=== PATIENT | female | born 1940 | race Hispanic/Latino ===

== ENCOUNTER → 2017-11-30 | Outpatient (CLI) | payer MEDICARE ==
--- NOTE | 2017-11-30 11:45 | Diagnostic Imaging Report ---
PROCEDURE: Frontal and lateral views of the chest. COMPARISON: None. INDICATIONS: SHORTNESS OF BREATH WHEN WALKING FINDINGS: Lines/tubes: None. Lungs: Lungs are well-inflated. There is diffuse moderate coarsening of the pulmonary interstitium, worse in the lower lobes. Ill-defined 1.0 cm nodular density projecting in the left lower lung over the posterior aspect of the left eighth rib, only seen in the frontal view. No consolidation. Pleura: There is no pleural effusion or pneumothorax. Eventration of the right anterior hemidiaphragm. Heart and mediastinum: Cardiac silhouette is partly obscured and likely enlarged. Pulmonary vasculature is partially obscured. Bones: No acute bony abnormality. Degenerative changes in the thoracic spine. IMPRESSION: 1. Findings in both lungs suggestive of fibrosis. Given the likely enlargement of the cardiac silhouette, a component of interstitial edema superimposed on fibrotic changes could also be considered. Recommend noncontrast CT chest with high resolution protocol for further evaluation. Benedict Cameron M.D. Dictated by: Benedict Cameron M.D. on 11/30/2017 at 11:50 Electronically approved by: Benedict Cameron M.D. on 11/30/2017 at 11:50
== END ==
LOC: RAD 10:19
PROVIDERS: ATTEND Internal Medicine Interventional Cardiology
DX: R06.02 Shortness of breath (principal)
CPT/HCPCS: 71046

== ENCOUNTER 2021-01-24 17:31 | Inpatient (IN) | payer MEDICARE, OTHER ==
[~2021-01-24] VITALS: Ht 160 cm; Wt 67.7 kg
[2021-01-24 18:25] LABS: BASOPHILS # (AUTO) 0.1 (0.0-0.1); BASOPHILS % 0.5 % (0.0-1.0); EOSINOPHILS # (AUTO) 0.1 (0.0-0.4); EOSINOPHILS % 0.5 % (0.0-6.0); HEMATOCRIT 39.5 % (34.2-44.1); HEMOGLOBIN 12.3 g/dL (12.0-16.0); LYMPHOCYTES # (AUTO) 1.4 (1.0-3.2); LYMPHOCYTES % 8.3 % (18.0-39.1); MEAN CORPUSCULAR HEMOGLOBIN 29.3 pg (28-32); MEAN CORPUSCULAR HGB CONC 31.1 g/dL (31-35); MONOCYTES # (AUTO) 1.2 (0.2-0.8); MONOCYTES % 7.1 % (4.4-11.3); NEUTROPHILS # (AUTO) 13.5 (2.1-6.9); PLATELET COUNT 261 x10e3/uL (140-360); RED CELL DISTRIBUTION WIDTH 14.3 % (11.7-14.4)
[2021-01-24 18:38] LABS: CLARITY,URINE CLEAR (CLEAR); COLOR,URINE YELLOW (YELLOW)
[2021-01-24 18:39] LABS: LEUKOCYTE ESTERASE ,URINE NEGATIVE (NEGATIVE); NITRITE,URINE NEGATIVE (NEGATIVE); PROTEIN,URINE DIPSTICK 2+ (NEGATIVE)
[2021-01-24 18:40] LABS: KETONES,URINE TRACE (NEGATIVE); URINE UROBILINOGEN 1 mg/dL (0.2 - 1)
[2021-01-24] MEDS ORDERED: CEFEPIME 1 GM in SODIUM CHLORIDE 0.9% 50ML 50 ML IV ONE (18:45)
[2021-01-24] MEDS ORDERED: SODIUM CHLORIDE 0.9% 1000ML 1,000 ML IV ONE ×2 (18:45)
[2021-01-24 18:46] LABS: AMORPHOUS SEDIMENT,URINE MODERATE (FEW); BACTERIA,URINE FEW /HPF; EPITHELIAL CELLS,URINE FEW /LPF; HYALINE CASTS 0-1 (0-1)
[2021-01-24 18:47] LABS: AMYLASE 63 U/L (25-125); LIPASE 29 U/L (8-78)
[2021-01-24 18:50] LABS: ALBUMIN 3.4 g/dL (3.5-5.0); ALBUMIN/GLOBULIN RATIO 0.8 (0.8-2.0); ANION GAP 16.6 mmol/L (8-16); CALCIUM 7.9 mg/dL (8.4-10.2); CREATININE, SERUM 0.96 mg/dL (0.57-1.11); POTASSIUM 3.6 mmol/L (3.5-5.1)
[2021-01-24 18:56] LABS: CREATINE KINASE MB 2.2 ng/mL (0-5.0)
[2021-01-24] MEDS ORDERED: IOPAMIDOL 370 MG/ML 200 ML INFUS..BTL INJ ONE (19:05)
[2021-01-24] MEDS ORDERED: SODIUM CHLORIDE 0.9% 50ML 50 ML ONE (19:05)
[2021-01-24] MEDS ORDERED: DEXTROSE 50% SYRINGE 50 ML IV PRN (21:30)
[2021-01-24] MEDS ORDERED: ACETAMINOPHEN 325 MG TAB PO PRN (21:30)
[2021-01-24] MEDS: CEFEPIME 2 GM in SODIUM CHLORIDE 0.9% 100 ML IV SCH (21:53)
[2021-01-24] MEDS: SODIUM CHLORIDE 0.9% 1000ML 1,000 ML IV SCH (22:51)
[2021-01-24 22:58] VITALS: BP 91/68
[2021-01-25] VITALS (7 sets, daily range): BP systolic 91–135; BP diastolic 62–99
[2021-01-25] MEDS: CEFEPIME 2 GM in SODIUM CHLORIDE 0.9% 100 ML IV SCH ×3 (06:14→23:27)
[2021-01-25 06:49] LABS: BASOPHILS # (AUTO) 0.1 (0.0-0.1); BASOPHILS % 0.6 % (0.0-1.0); EOSINOPHILS # (AUTO) 0.2 (0.0-0.4); EOSINOPHILS % 2.8 % (0.0-6.0); HEMATOCRIT 32.6 % (34.2-44.1); HEMOGLOBIN 10.1 g/dL (12.0-16.0); LYMPHOCYTES # (AUTO) 1.8 (1.0-3.2); LYMPHOCYTES % 20.8 % (18.0-39.1); MEAN CORPUSCULAR HEMOGLOBIN 29.9 pg (28-32); MEAN CORPUSCULAR VOLUME 96.4 fL (81-99); MONOCYTES # (AUTO) 0.8 (0.2-0.8); MONOCYTES % 9.7 % (4.4-11.3); NEUTROPHILS # (AUTO) 5.6 (2.1-6.9); NEUTROPHILS % 65.4 % (38.7-80.0); PLATELET COUNT 183 x10e3/uL (140-360); RED BLOOD COUNT 3.38 x10e6/uL (3.6-5.1); RED CELL DISTRIBUTION WIDTH 14.5 % (11.7-14.4)
[2021-01-25 07:14] LABS: CREATINE KINASE MB 3.8 ng/mL (0-5.0)
[2021-01-25] MEDS: INSULIN REGULAR, HUMAN 100 UNIT/1 ML SQ SCH ×4 (07:30→21:00)
[2021-01-25 07:32] LABS: ALBUMIN 2.8 g/dL (3.5-5.0); ALBUMIN/GLOBULIN RATIO 0.8 (0.8-2.0); ANION GAP 11.1 mmol/L (8-16); CALCIUM 7.6 mg/dL (8.4-10.2); CREATININE, SERUM 0.81 mg/dL (0.57-1.11); POTASSIUM 4.1 mmol/L (3.5-5.1)
[2021-01-25] MEDS: SODIUM CHLORIDE 0.9% 1000ML 1,000 ML IV SCH (09:06)
[2021-01-25] MEDS ORDERED: DIPHENHYDRAMINE HCL 25 MG CAP PO PRN (12:15)
[2021-01-25] MEDS ORDERED: POTASSIUM CHLORIDE 20 MEQ TAB CR PO PRN (12:15)
[2021-01-25] MEDS ORDERED: TRAMADOL HCL 50 MG TAB PO PRN (12:15)
[2021-01-25] MEDS ORDERED: ONDANSETRON HCL INJ 2MG/ML 2ML 2 MG/ML VIAL IV PRN (12:15)
[2021-01-25] MEDS ORDERED: DEXTROSE 50% SYRINGE 50 ML IV PRN (12:15)
[2021-01-25] MEDS ORDERED: LIDOCAINE 4% PATCH TP PRN (12:15)
[2021-01-25] MEDS ORDERED: PHENAZOPYRIDINE HCL 100 MG TAB PO PRN (12:15)
[2021-01-25] MEDS ORDERED: SIMETHICONE 80 MG CHEW PO PRN (12:15)
[2021-01-25] MEDS ORDERED: DOCUSATE SODIUM 100 MG CAP PO PRN (12:15)
[2021-01-25] MEDS ORDERED: HYDRALAZINE HCL 20 MG/ML VIAL IV PRN (12:15)
[2021-01-25 15:03] LABS: CREATINE KINASE MB 3.6 ng/mL (0-5.0)
[2021-01-25] MEDS: IPRATROPIUM BROMIDE 0.02% 2.5 ML NEB NEB SCH ×2 (15:30→18:45)
[2021-01-25] MEDS: ALBUTEROL SULF 0.083% NEB SOLN 3 ML NEB NEB SCH ×3 (15:30→23:50)
[2021-01-25] MEDS ORDERED: LEVOTHYROXINE50 MCG PO (15:37)
[2021-01-25] MEDS ORDERED: KLONOPIN2 MG PO (15:37)
[2021-01-25] MEDS ORDERED: QUETIAPINE FUMA25 MG PO (15:37)
[2021-01-25] MEDS ORDERED: JANUMET XR 1001 EACH PO (15:37)
[2021-01-25] MEDS ORDERED: DEXILANT60 MG PO (15:37)
[2021-01-25] MEDS ORDERED: ARICEPT10 MG PO (15:37)
[2021-01-25] MEDS ORDERED: MYSOLINE50 MG PO ×2 (15:37)
[2021-01-25] MEDS ORDERED: CARBIDOPA25 MG PO (15:37)
[2021-01-25] MEDS ORDERED: AMITIZA24 MCG PO (15:37)
[2021-01-25] MEDS ORDERED: NAMENDA10 MG PO (15:37)
[2021-01-25] MEDS ORDERED: METOPROLOL SUCC50 MG PO (15:37)
[2021-01-25] MEDS: ASPIRIN 81 MG ENTERIC COATED PO SCH (15:48)
[2021-01-25] MEDS ORDERED: ENOXAPARIN SOD INJ 40 MG/0.4 ML SYR SC SCH (17:00)
[2021-01-25] MEDS: METOPROLOL TARTRATE 25 MG TAB PO SCH (17:25)
[2021-01-25] MEDS: ENOXAPARIN SOD INJ 40 MG/0.4 ML SYR SC SCH (17:26)
[2021-01-26] VITALS (8 sets, daily range): BP systolic 119–141; BP diastolic 67–83
[2021-01-26] MEDS: IPRATROPIUM BROMIDE 0.02% 2.5 ML NEB NEB SCH ×4 (03:05→19:26)
[2021-01-26] MEDS: ALBUTEROL SULF 0.083% NEB SOLN 3 ML NEB NEB SCH ×6 (03:05→22:23)
[2021-01-26] MEDS: CEFEPIME 2 GM in SODIUM CHLORIDE 0.9% 100 ML IV SCH ×3 (05:46→22:00)
[2021-01-26 06:43] LABS: BASOPHILS # (AUTO) 0.1 (0.0-0.1); BASOPHILS % 0.6 % (0.0-1.0); EOSINOPHILS # (AUTO) 0.3 (0.0-0.4); EOSINOPHILS % 3.3 % (0.0-6.0); HEMATOCRIT 33.6 % (34.2-44.1); HEMOGLOBIN 10.4 g/dL (12.0-16.0); LYMPHOCYTES # (AUTO) 1.5 (1.0-3.2); LYMPHOCYTES % 16.5 % (18.0-39.1); MEAN CORPUSCULAR HEMOGLOBIN 30.1 pg (28-32); MEAN CORPUSCULAR VOLUME 97.1 fL (81-99); MONOCYTES # (AUTO) 0.8 (0.2-0.8); MONOCYTES % 8.5 % (4.4-11.3); NEUTROPHILS # (AUTO) 6.3 (2.1-6.9); NEUTROPHILS % 70.4 % (38.7-80.0); PLATELET COUNT 178 x10e3/uL (140-360); RED BLOOD COUNT 3.46 x10e6/uL (3.6-5.1); RED CELL DISTRIBUTION WIDTH 14.6 % (11.7-14.4)
[2021-01-26 07:23] LABS: ALBUMIN/GLOBULIN RATIO 0.8 (0.8-2.0); ANION GAP 13.2 mmol/L (8-16); CREATININE, SERUM 0.76 mg/dL (0.57-1.11); POTASSIUM 4.2 mmol/L (3.5-5.1)
[2021-01-26] MEDS: INSULIN REGULAR, HUMAN 100 UNIT/1 ML SQ SCH ×4 (07:30→21:00)
[2021-01-26] MEDS: ACETAMINOPHEN 325 MG TAB PO PRN (08:30)
[2021-01-26] MEDS: ASPIRIN 81 MG ENTERIC COATED PO SCH (08:30)
[2021-01-26] MEDS: METOPROLOL TARTRATE 25 MG TAB PO SCH ×2 (08:30→17:13)
[2021-01-26] MEDS: PANTOPRAZOLE SOD 40 MG TABEC PO SCH (08:30)
[2021-01-26] MEDS: METHYLPREDNISOLONE SOD SUCC 40 MG/ML VIAL 1ML IV SCH (13:05)
[2021-01-26] MEDS ORDERED: DEXTROSE 5%/0.9% SOD CHL 1,000 ML IV SCH (14:00)
[2021-01-26] MEDS: MEMANTINE 10 MG TAB PO SCH (14:30)
[2021-01-26] MEDS: ENOXAPARIN SOD INJ 40 MG/0.4 ML SYR SC SCH (17:12)
[2021-01-26] MEDS: DONEPEZIL HCL 5 MG TAB PO SCH (20:26)
[2021-01-26] MEDS: PRIMIDONE 50 MG TAB PO SCH (20:27)
[2021-01-26] MEDS: MELATONIN 5 MG TABLET PO PRN (20:27)
[2021-01-26] MEDS: BENZONATATE 100 MG CAP PO PRN (23:11)
[2021-01-27] VITALS (8 sets, daily range): BP systolic 115–132; BP diastolic 61–79
[2021-01-27] MEDS: MEMANTINE 10 MG TAB PO SCH ×2 (01:30→14:00)
[2021-01-27] MEDS: ALBUTEROL SULF 0.083% NEB SOLN 3 ML NEB NEB SCH ×5 (01:30→22:00)
[2021-01-27] MEDS: CEFEPIME 2 GM in SODIUM CHLORIDE 0.9% 100 ML IV SCH ×3 (06:00→22:30)
[2021-01-27] MEDS: INSULIN REGULAR, HUMAN 100 UNIT/1 ML SQ SCH ×4 (07:30→21:00)
[2021-01-27] MEDS: IPRATROPIUM BROMIDE 0.02% 2.5 ML NEB NEB SCH ×5 (07:38→19:12)
[2021-01-27] MEDS: METHYLPREDNISOLONE SOD SUCC 40 MG/ML VIAL 1ML IV SCH (08:30)
[2021-01-27] MEDS: PANTOPRAZOLE SOD 40 MG TABEC PO SCH (08:30)
[2021-01-27] MEDS: PRIMIDONE 50 MG TAB PO SCH ×2 (09:00→20:52)
[2021-01-27] MEDS ORDERED: LUBIPROSTONE 24 MCG CAP PO SCH (09:00)
[2021-01-27] MEDS: ASPIRIN 81 MG ENTERIC COATED PO SCH (09:00)
[2021-01-27] MEDS ORDERED: METOPROLOL SUCCINATE 50 MG TAB XL PO SCH (09:00)
[2021-01-27] MEDS: METOPROLOL TARTRATE 25 MG TAB PO SCH ×2 (09:00→17:11)
[2021-01-27] MEDS: QUETIAPINE FUMARATE 25 MG TAB PO SCH (09:00)
[2021-01-27] MEDS: LEVOTHYROXINE SODIUM 50 MCG TAB PO SCH (09:00)
[2021-01-27] MEDS: CARBIDOPA 25 MG PO SCH (09:00)
[2021-01-27 09:14] LABS: BASOPHILS % 0.4 % (0.0-1.0); EOSINOPHILS # (AUTO) 0.3 (0.0-0.4); EOSINOPHILS % 2.5 % (0.0-6.0); HEMATOCRIT 33.6 % (34.2-44.1); HEMOGLOBIN 10.6 g/dL (12.0-16.0); LYMPHOCYTES # (AUTO) 1.2 (1.0-3.2); LYMPHOCYTES % 11.6 % (18.0-39.1); MEAN CORPUSCULAR HEMOGLOBIN 29.9 pg (28-32); MEAN CORPUSCULAR HGB CONC 31.5 g/dL (31-35); MEAN CORPUSCULAR VOLUME 94.6 fL (81-99); MONOCYTES # (AUTO) 0.8 (0.2-0.8); MONOCYTES % 7.3 % (4.4-11.3); NEUTROPHILS # (AUTO) 8.3 (2.1-6.9); NEUTROPHILS % 77.6 % (38.7-80.0); PLATELET COUNT 200 x10e3/uL (140-360); RED BLOOD COUNT 3.55 x10e6/uL (3.6-5.1); RED CELL DISTRIBUTION WIDTH 14.3 % (11.7-14.4)
[2021-01-27 09:48] LABS: ANION GAP 13.6 mmol/L (8-16); CALCIUM 8.1 mg/dL (8.4-10.2); CREATININE, SERUM 0.75 mg/dL (0.57-1.11); POTASSIUM 3.6 mmol/L (3.5-5.1)
[2021-01-27] MEDS: LUBIPROSTONE 24 MCG CAP PO SCH (16:32)
[2021-01-27] MEDS: MEGACE 400MG/ 10ML CUP PO SCH (17:10)
[2021-01-27] MEDS: ENOXAPARIN SOD INJ 40 MG/0.4 ML SYR SC SCH (17:11)
[2021-01-27] MEDS: DONEPEZIL HCL 5 MG TAB PO SCH (20:52)
[2021-01-27] MEDS: MELATONIN 5 MG TABLET PO PRN (20:53)
[2021-01-27] MEDS: BENZONATATE 100 MG CAP PO PRN (20:53)
[2021-01-28] VITALS (7 sets, daily range): BP systolic 113–131; BP diastolic 60–93
[2021-01-28] MEDS: MEMANTINE 10 MG TAB PO SCH ×2 (01:30→12:31)
[2021-01-28] MEDS: IPRATROPIUM BROMIDE 0.02% 2.5 ML NEB NEB SCH ×4 (02:42→19:46)
[2021-01-28] MEDS: ALBUTEROL SULF 0.083% NEB SOLN 3 ML NEB NEB SCH ×6 (02:43→22:43)
[2021-01-28] MEDS: BENZONATATE 100 MG CAP PO PRN (05:00)
[2021-01-28] MEDS: CEFEPIME 2 GM in SODIUM CHLORIDE 0.9% 100 ML IV SCH ×2 (05:34→15:41)
[2021-01-28 06:09] LABS: BASOPHILS # (AUTO) 0.1 (0.0-0.1); BASOPHILS % 0.4 % (0.0-1.0); EOSINOPHILS # (AUTO) 0.5 (0.0-0.4); HEMATOCRIT 34.3 % (34.2-44.1); HEMOGLOBIN 10.7 g/dL (12.0-16.0); LYMPHOCYTES # (AUTO) 2.4 (1.0-3.2); LYMPHOCYTES % 19.1 % (18.0-39.1); MEAN CORPUSCULAR HEMOGLOBIN 29.8 pg (28-32); MEAN CORPUSCULAR HGB CONC 31.2 g/dL (31-35); MEAN CORPUSCULAR VOLUME 95.5 fL (81-99); MONOCYTES % 7.9 % (4.4-11.3); NEUTROPHILS # (AUTO) 8.6 (2.1-6.9); PLATELET COUNT 240 x10e3/uL (140-360); RED BLOOD COUNT 3.59 x10e6/uL (3.6-5.1); RED CELL DISTRIBUTION WIDTH 14.3 % (11.7-14.4)
[2021-01-28 06:30] LABS: ANION GAP 13.5 mmol/L (8-16); CALCIUM 8.1 mg/dL (8.4-10.2); CREATININE, SERUM 0.83 mg/dL (0.57-1.11); POTASSIUM 3.5 mmol/L (3.5-5.1)
[2021-01-28] MEDS: INSULIN REGULAR, HUMAN 100 UNIT/1 ML SQ SCH ×3 (07:30→21:32)
[2021-01-28] MEDS: METHYLPREDNISOLONE SOD SUCC 40 MG/ML VIAL 1ML IV SCH (08:52)
[2021-01-28] MEDS: PRIMIDONE 50 MG TAB PO SCH ×2 (08:53→21:31)
[2021-01-28] MEDS: CARBIDOPA 25 MG PO SCH (08:53)
[2021-01-28] MEDS: QUETIAPINE FUMARATE 25 MG TAB PO SCH (08:53)
[2021-01-28] MEDS: MEGACE 400MG/ 10ML CUP PO SCH (08:53)
[2021-01-28] MEDS: METOPROLOL TARTRATE 25 MG TAB PO SCH ×2 (08:53→17:32)
[2021-01-28] MEDS: PANTOPRAZOLE SOD 40 MG TABEC PO SCH (08:53)
[2021-01-28] MEDS: MODAFINIL 100 MG TAB PO SCH (08:53)
[2021-01-28] MEDS: ASPIRIN 81 MG ENTERIC COATED PO SCH (08:53)
[2021-01-28] MEDS: LEVOTHYROXINE SODIUM 50 MCG TAB PO SCH (08:53)
[2021-01-28] MEDS: ACETAMINOPHEN 325 MG TAB PO PRN (12:30)
[2021-01-28] MEDS: ENOXAPARIN SOD INJ 40 MG/0.4 ML SYR SC SCH (17:32)
[2021-01-28] MEDS: DONEPEZIL HCL 5 MG TAB PO SCH (21:31)
[2021-01-29] VITALS (7 sets, daily range): BP systolic 113–152; BP diastolic 62–77
[2021-01-29] MEDS: CEFEPIME 2 GM in SODIUM CHLORIDE 0.9% 100 ML IV SCH ×2 (01:03→06:36)
[2021-01-29] MEDS: ALBUTEROL SULF 0.083% NEB SOLN 3 ML NEB NEB SCH ×8 (01:30→23:30)
[2021-01-29] MEDS: MEMANTINE 10 MG TAB PO SCH ×2 (02:03→13:42)
[2021-01-29 05:25] LABS: BASOPHILS % 0.3 % (0.0-1.0); EOSINOPHILS # (AUTO) 0.6 (0.0-0.4); EOSINOPHILS % 4.8 % (0.0-6.0); HEMATOCRIT 33.5 % (34.2-44.1); HEMOGLOBIN 10.6 g/dL (12.0-16.0); LYMPHOCYTES # (AUTO) 1.9 (1.0-3.2); LYMPHOCYTES % 16.4 % (18.0-39.1); MEAN CORPUSCULAR HEMOGLOBIN 30.1 pg (28-32); MEAN CORPUSCULAR HGB CONC 31.6 g/dL (31-35); MEAN CORPUSCULAR VOLUME 95.2 fL (81-99); MONOCYTES # (AUTO) 0.9 (0.2-0.8); MONOCYTES % 7.2 % (4.4-11.3); NEUTROPHILS # (AUTO) 8.3 (2.1-6.9); NEUTROPHILS % 70.5 % (38.7-80.0); PLATELET COUNT 231 x10e3/uL (140-360); RED BLOOD COUNT 3.52 x10e6/uL (3.6-5.1); RED CELL DISTRIBUTION WIDTH 14.6 % (11.7-14.4)
[2021-01-29 05:58] LABS: ANION GAP 13.1 mmol/L (8-16); CREATININE, SERUM 0.75 mg/dL (0.57-1.11); POTASSIUM 3.1 mmol/L (3.5-5.1)
[2021-01-29] MEDS: IPRATROPIUM BROMIDE 0.02% 2.5 ML NEB NEB SCH ×4 (06:10→22:09)
[2021-01-29] MEDS: PANTOPRAZOLE SOD 40 MG TABEC PO SCH (07:30)
[2021-01-29] MEDS: INSULIN REGULAR, HUMAN 100 UNIT/1 ML SQ SCH ×4 (07:30→21:00)
[2021-01-29] MEDS: LEVOTHYROXINE SODIUM 50 MCG TAB PO SCH (07:45)
[2021-01-29] MEDS: LUBIPROSTONE 24 MCG CAP PO SCH (08:00)
[2021-01-29] MEDS: METHYLPREDNISOLONE SOD SUCC 40 MG/ML VIAL 1ML IV SCH (08:52)
[2021-01-29] MEDS: ASPIRIN 81 MG ENTERIC COATED PO SCH (09:00)
[2021-01-29] MEDS: METOPROLOL TARTRATE 25 MG TAB PO SCH ×2 (09:00→16:58)
[2021-01-29] MEDS: PRIMIDONE 50 MG TAB PO SCH ×2 (09:00→21:00)
[2021-01-29] MEDS: MEGACE 400MG/ 10ML CUP PO SCH (09:00)
[2021-01-29] MEDS: CARBIDOPA 25 MG PO SCH (09:00)
[2021-01-29] MEDS: MODAFINIL 100 MG TAB PO SCH (09:00)
[2021-01-29] MEDS: QUETIAPINE FUMARATE 25 MG TAB PO SCH (09:00)
[2021-01-29] MEDS: PIPERACILLIN/TAZOBACTAM 3.375 GM in SODIUM CHLORIDE 0.9% 50ML 50 ML IV SCH ×2 (14:37→22:00)
[2021-01-29 16:26] LABS: ABG PCO2 24 mmHg (35-45); ABG PH 7.44 (7.35-7.45)
[2021-01-29 16:27] LABS: ABG HCO3 17 mmol/L (22-26); ABG PO2 35 mmHg (80-105); ABG TCO2 17
[2021-01-29] MEDS: ENOXAPARIN SOD INJ 40 MG/0.4 ML SYR SC SCH (16:58)
[2021-01-29] MEDS ORDERED: DEXTROSE 5%/0.9% SOD CHL 1,000 ML IV SCH (17:30)
[2021-01-29] MEDS ORDERED: POTASSIUM CHLORIDE 20MEQ/100ML 200 ML IV ONE ×2 (18:00→20:00)
[2021-01-29] MEDS: DONEPEZIL HCL 5 MG TAB PO SCH (21:00)
[2021-01-29] MEDS ORDERED: DEXMEDETOMIDINE 400MCG/NS100ML 100 ML IV PRN (22:45)
[2021-01-30] VITALS (8 sets, daily range): BP systolic 94–171; BP diastolic 48–72
[2021-01-30] MEDS ORDERED: ACETAMINOPHEN 1000 MG/100 ML IV SCH
[2021-01-30] MEDS ORDERED: ACETAMINOPHEN 1000 MG/100 ML 100 ML IV ONE (00:10)
[2021-01-30] MEDS: DEXTROSE 5%/0.9% SOD CHL 1,000 ML IV SCH ×3 (00:16→21:06)
[2021-01-30] MEDS: MEMANTINE 10 MG TAB PO SCH ×3 (01:09→21:06)
[2021-01-30] MEDS ORDERED: ACETAMINOPHEN 1000 MG/100 ML IV PRN (01:15)
[2021-01-30] MEDS: IPRATROPIUM BROMIDE 0.02% 2.5 ML NEB NEB SCH ×4 (03:02→19:00)
[2021-01-30 04:02] LABS: BASOPHILS % 0.2 % (0.0-1.0); EOSINOPHILS # (AUTO) 0.1 (0.0-0.4); EOSINOPHILS % 0.9 % (0.0-6.0); HEMATOCRIT 28.9 % (34.2-44.1); HEMOGLOBIN 9.2 g/dL (12.0-16.0); LYMPHOCYTES # (AUTO) 1.1 (1.0-3.2); LYMPHOCYTES % 8.2 % (18.0-39.1); MEAN CORPUSCULAR HEMOGLOBIN 29.7 pg (28-32); MEAN CORPUSCULAR HGB CONC 31.8 g/dL (31-35); MEAN CORPUSCULAR VOLUME 93.2 fL (81-99); MONOCYTES # (AUTO) 0.8 (0.2-0.8); MONOCYTES % 6.1 % (4.4-11.3); NEUTROPHILS # (AUTO) 10.8 (2.1-6.9); NEUTROPHILS % 83.9 % (38.7-80.0); PLATELET COUNT 182 x10e3/uL (140-360); RED CELL DISTRIBUTION WIDTH 14.6 % (11.7-14.4)
[2021-01-30 04:22] LABS: ANION GAP 15.6 mmol/L (8-16); CALCIUM 7.9 mg/dL (8.4-10.2); CREATININE, SERUM 0.82 mg/dL (0.57-1.11); POTASSIUM 3.6 mmol/L (3.5-5.1)
[2021-01-30] MEDS: PIPERACILLIN/TAZOBACTAM 3.375 GM in SODIUM CHLORIDE 0.9% 50ML 50 ML IV SCH ×3 (05:28→21:06)
[2021-01-30] MEDS: LEVOTHYROXINE SODIUM 25 MCG TABLET PO SCH (05:28)
[2021-01-30] MEDS: ALBUTEROL SULF 0.083% NEB SOLN 3 ML NEB NEB SCH ×4 (06:55→19:00)
[2021-01-30] MEDS: PANTOPRAZOLE SOD 40 MG TABEC PO SCH (07:30)
[2021-01-30] MEDS: INSULIN REGULAR, HUMAN 100 UNIT/1 ML SQ SCH ×2 (07:30→11:30)
[2021-01-30] MEDS: LUBIPROSTONE 24 MCG CAP PO SCH (07:42)
[2021-01-30] MEDS: CARBIDOPA 25 MG PO SCH (07:42)
[2021-01-30] MEDS: MEGACE 400MG/ 10ML CUP PO SCH (08:06)
[2021-01-30] MEDS: METOPROLOL TARTRATE 25 MG TAB PO SCH ×2 (08:06→16:31)
[2021-01-30] MEDS: ASPIRIN 81 MG ENTERIC COATED PO SCH (08:06)
[2021-01-30] MEDS: MODAFINIL 100 MG TAB PO SCH (08:06)
[2021-01-30] MEDS: PRIMIDONE 50 MG TAB PO SCH ×2 (08:06→19:49)
[2021-01-30] MEDS: QUETIAPINE FUMARATE 25 MG TAB PO SCH (08:07)
[2021-01-30 09:39] LABS: ABG HCO3 21 mmol/L (22-26); ABG PCO2 31 mmHg (35-45); ABG PH 7.45 (7.35-7.45); ABG PO2 140 mmHg (80-105); ABG TCO2 22
[2021-01-30] MEDS: NYSTATIN SUSPENSION 5 ML UDC PO SCH ×4 (13:00→21:06)
[2021-01-30] MEDS: ENOXAPARIN SOD INJ 40 MG/0.4 ML SYR SC SCH (16:31)
[2021-01-30] MEDS: DONEPEZIL HCL 5 MG TAB PO SCH (19:49)
[2021-01-31] VITALS (8 sets, daily range): BP systolic 101–139; BP diastolic 55–85
[2021-01-31] MEDS ORDERED: ACETAMINOPHEN 1000 MG/100 ML IV PRN (01:45)
[2021-01-31] MEDS: IPRATROPIUM BROMIDE 0.02% 2.5 ML NEB NEB SCH ×2 (02:50→07:45)
[2021-01-31] MEDS: ALBUTEROL SULF 0.083% NEB SOLN 3 ML NEB NEB SCH ×3 (02:50→11:23)
[2021-01-31 03:47] LABS: BASOPHILS % 0.3 % (0.0-1.0); EOSINOPHILS # (AUTO) 0.5 (0.0-0.4); EOSINOPHILS % 5.3 % (0.0-6.0); HEMATOCRIT 29.6 % (34.2-44.1); HEMOGLOBIN 9.4 g/dL (12.0-16.0); LYMPHOCYTES # (AUTO) 1.2 (1.0-3.2); LYMPHOCYTES % 11.9 % (18.0-39.1); MEAN CORPUSCULAR HGB CONC 31.8 g/dL (31-35); MEAN CORPUSCULAR VOLUME 94.6 fL (81-99); MONOCYTES # (AUTO) 0.5 (0.2-0.8); MONOCYTES % 4.6 % (4.4-11.3); NEUTROPHILS # (AUTO) 7.6 (2.1-6.9); NEUTROPHILS % 77.5 % (38.7-80.0); PLATELET COUNT 170 x10e3/uL (140-360); RED BLOOD COUNT 3.13 x10e6/uL (3.6-5.1); RED CELL DISTRIBUTION WIDTH 14.6 % (11.7-14.4)
[2021-01-31] MEDS: LEVOTHYROXINE SODIUM 25 MCG TABLET PO SCH (03:52)
[2021-01-31] MEDS: PIPERACILLIN/TAZOBACTAM 3.375 GM in SODIUM CHLORIDE 0.9% 50ML 50 ML IV SCH (03:52)
[2021-01-31 04:04] LABS: ANION GAP 11.6 mmol/L (8-16); CALCIUM 7.5 mg/dL (8.4-10.2); CREATININE, SERUM 0.86 mg/dL (0.57-1.11); POTASSIUM 3.6 mmol/L (3.5-5.1)
[2021-01-31] MEDS ORDERED: ACETAMINOPHEN 1000 MG/100 ML IV SCH (06:00)
[2021-01-31] MEDS: PANTOPRAZOLE SOD 40 MG TABEC PO SCH (07:30)
[2021-01-31] MEDS: LUBIPROSTONE 24 MCG CAP PO SCH (08:00)
[2021-01-31] MEDS: CARBIDOPA 25 MG PO SCH (08:53)
[2021-01-31] MEDS: ASPIRIN 81 MG ENTERIC COATED PO SCH (08:53)
[2021-01-31] MEDS: NYSTATIN SUSPENSION 5 ML UDC PO SCH ×2 (08:54→12:50)
[2021-01-31] MEDS: PRIMIDONE 50 MG TAB PO SCH (08:54)
[2021-01-31] MEDS: MODAFINIL 100 MG TAB PO SCH (08:54)
[2021-01-31] MEDS: QUETIAPINE FUMARATE 25 MG TAB PO SCH (08:54)
[2021-01-31] MEDS: MEGACE 400MG/ 10ML CUP PO SCH (08:54)
[2021-01-31] MEDS: METOPROLOL TARTRATE 25 MG TAB PO SCH (08:54)
[2021-01-31] MEDS: DEXTROSE 5%/0.9% SOD CHL 1,000 ML IV SCH (12:50)
[2021-01-31] MEDS ORDERED: SODIUM CHLORIDE 0.9% 1000ML 1,000 ML ONE (13:19)
[2021-01-31] MEDS ORDERED: NOREPINEPHRINE 8 MG/D5W 250 ML 250 ML ONE (13:21)
== END 2021-01-31 20:28 | disposition expired | DRG 871 ==
LOC: ER 17:50 → ERHOLD 21:22 → MED/SURG3 21:58 → IMCU 01-29 17:45
PROVIDERS: ADMIT Internal Medicine; ATTEND Internal Medicine
PROC: 02HV33Z Insertion of Infusion Device into Superior Vena Cava, Percutaneous Approach (ICD-10-PCS; principal; 2021-01-30)
PROC: 5A12012 Performance of Cardiac Output, Single, Manual (ICD-10-PCS; 2021-01-31)
PROC: 5A1935Z Respiratory Ventilation, Less than 24 Consecutive Hours (ICD-10-PCS; 2021-01-31)
PROC: 0BH17EZ Insertion of Endotracheal Airway into Trachea, Via Natural or Artificial Opening (ICD-10-PCS; 2021-01-31)
PROC: 3E043XZ Introduction of Vasopressor into Central Vein, Percutaneous Approach (ICD-10-PCS; 2021-01-31)
DX: A41.9 Sepsis, unspecified organism (principal); J69.0 Pneumonitis due to inhalation of food and vomit; R65.21 Severe sepsis with septic shock; I21.A1 Myocardial infarction type 2; J96.01 Acute respiratory failure with hypoxia; J18.9 Pneumonia, unspecified organism; J84.9 Interstitial pulmonary disease, unspecified; D35.01 Benign neoplasm of right adrenal gland; E11.9 Type 2 diabetes mellitus without complications; I10 Essential (primary) hypertension; Z20.822 Contact with and (suspected) exposure to COVID-19; Z83.3 Family history of diabetes mellitus; Z82.49 Family history of ischemic heart disease and other diseases of the circulatory system; H54.62 Unqualified visual loss, left eye, normal vision right eye; I25.10 Atherosclerotic heart disease of native coronary artery without angina pectoris; I27.23 Pulmonary hypertension due to lung diseases and hypoxia; F03.90 Unspecified dementia, unspecified severity, without behavioral disturbance, psychotic disturbance, mood disturbance, and anxiety; I46.9 Cardiac arrest, cause unspecified; G20 Parkinson's disease; F02.80 Dementia in other diseases classified elsewhere, unspecified severity, without behavioral disturbance, psychotic disturbance, mood disturbance, and anxiety; Z66 Do not resuscitate
CPT/HCPCS: 31500; 36415; 36569; 36600; 70450; 71045; 71260; 74177; 74230; 80048; 80053; 81001; 82150; 82550; 82553; 82805; 82948; 83605; 83690; 84484; 85025; 86039; 87040; 87086; 93005; 93306; 94640; 96361; 96372; 97139; 99285; J0456; J0692; J1650; J1817; J2405; J2543; J2920; J7030; J7042; J7050; Q9967; U0002